=== PATIENT | male | born 1960 | race Caucasian/White ===

== ENCOUNTER 2016-05-14 14:24 | Emergency (ER) | payer BC ==
[~2016-05-14] VITALS: Ht 185.4 cm; Wt 118.0 kg
--- NOTE | 2016-05-14 14:30 | NUR ---
1405 - SPEAKS WITH NADEGE RN ON PHONE - EXPLAINS SITUATION AND THEY ARE EN ROUTE TO HOSPITAL. NADEGE DIRECTS THEM TO COME TO [facility]. 1420 -PATIENT ARRIVES IN AMBULANCE BAY, C-COLLAR APPLIED PRIOR TO GETTING OUT OF VEHICLE. PARTIAL TRAUMA ACTIVATED.
[2016-05-14] MEDS ORDERED: HYDROmorphone 1 MG/ML (DILAUDID) SYRINGE IV ONE (14:45)
[2016-05-14] MEDS ORDERED: ONDANSETRON 2 MG/ML (Z0FRAN) 2 ML VIAL IV ONE (14:45)
[2016-05-14] MEDS ORDERED: KETOROLAC 30 MG/ML (TORADOL) 1 ML VIAL IV ONE (14:45)
--- NOTE | 2016-05-14 14:57 | NUR ---
C-COLLAR REMOVED BY DR. TRAORE. PATIENT TOLERATED WELL.
[2016-05-14 15:23] LABS: ALBUMIN 4.2 g/dL (3.4-5.0); ALKALINE PHOSPHATASE 45 U/L (38-126); ANION GAP 16.9 MEQ/L (3-15); BUN/CREATININE RATIO 13 (10-20); TOTAL PROTEIN 7.5 g/dL (6.4-8.5)
[2016-05-14 16:14] LABS: BASOPHILS % (AUTO) 0 % (0-2); EOSINOPHILS # (AUTO) 0.2 10^3uL; EOSINOPHILS % (AUTO) 1 % (0-4); LYMPHOCYTES # (AUTO) 2.7 X10^3; MEAN CORPUSCULAR HGB CONC 34.3 g/dL (31.0-37.0); MEAN CORPUSCULAR VOLUME 91 FL (80-100); MEAN PLATELET VOLUME 8.9 FL (6.0-9.5); MONOCYTES # (AUTO) 1.6 X10^3; MONOCYTES % (AUTO) 11 % (3-11); NEUTROPHILS # (AUTO) 10.1 X10^3; NEUTROPHILS % (AUTO) 69 % (51-67); PLATELET COUNT 237 10^3uL (150-450); WHITE BLOOD COUNT 14.69 10^3uL (4.0-11.0)
[2016-05-14 16:17] LABS: MEAN CORPUSCULAR HEMOGLOBIN 31.4 PG (26.0-34.0)
[2016-05-14 16:28] LABS: CLARITY,URINE Clear; COLOR,URINE Yellow; GLUCOSE, URINE (UA) Negative (Negative); LEUKOCYTE ESTERASE ,URINE Negative (Negative); UROBILINOGEN,URINE 0.2 mg/dL (0.2-1.0)
[2016-05-14 16:41] LABS: BILIRUBIN,URINE 1+ (Negative)
[2016-05-14 16:42] LABS: RBC,URINE None Seen /HPF; URINE CENTRIFUGED VOLUME 12 mL
[2016-05-14 16:44] LABS: AMPHETAMINE SCREEN, URINE Negative (Negative); CANNABINOID SCREEN, URINE Negative (Negative); METHAMPHETAMINE SCREEN URINE S NEGATIVE (NEGATIVE); OPIATE SCREEN URINE Positive (Negative); PROPOXYPHENE STAT NEGATIVE (NEGATIVE)
[2016-05-14 17:07] VITALS: BP 137/89
== END 2016-05-14 17:08 | disposition home or self-care (01) ==
LOC: EDUNIT# 14:24 → ED 14:30
DX: S30.0XXA Contusion of lower back and pelvis, initial encounter (principal); S20.212A Contusion of left front wall of thorax, initial encounter; W17.89XA Other fall from one level to another, initial encounter; Y93.9 Activity, unspecified; Y92.65 Oil rig as the place of occurrence of the external cause; Y99.0 Civilian activity done for income or pay
CPT/HCPCS: 36415; 71020; 71100; 72100; 80053; 80307; 80320; 81003; 81015; 85025; 96374; 96375; 99283; J1170; J1885; J2405; 99284

== ENCOUNTER 2016-06-17 13:45 | Emergency (ER) | payer OTHER, BC ==
[~2016-06-17] VITALS: Ht 185.4 cm; Wt 118.0 kg
[2016-06-17] MEDS ORDERED: LIDOCAINE/EPINEPHRINE 1%-1:100,000 (XYLOCAINE) 20ML VIAL TOP ONE (14:00)
[2016-06-17] MEDS ORDERED: LIDOCAINE/EPINEPHRINE 1% 1:100,000 (XYLOCAINE) 30 ML VIAL INJ ONE ×2 (14:02→18:40)
[2016-06-17] MEDS ORDERED: BACITRACIN OINTMENT 0.9 GM PACKET TOP ONE (14:55)
[2016-06-17] MEDS ORDERED: TETANUS, DIPTHERIA, PERTUSSIS (ADACELL) VACCINE 0.5 ML VIAL IM ONE (15:00)
[2016-06-17] MEDS ORDERED: HYDROmorphone 1 MG/ML (DILAUDID) SYRINGE IM ONE (15:10)
[2016-06-17] MEDS ORDERED: PROMETHAZINE 25 MG/ML (PHENERGAN) 1 ML VIAL IM ONE (15:10)
--- NOTE | 2016-06-17 15:10 | NUR ---
PT REQUESTS PAIN MED DUE TO PAIN. DR CADENA INFORMS PT HE WILL HAVE TO WAIT 20 MIN HERE FOR A SHOT CHECK FURTHER. 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 NO FURTHER REQUESTS AT THIS TIME. ORDERS NOTED. CL
[2016-06-17 18:42] VITALS: BP 159/84
== END 2016-06-17 16:19 | disposition home or self-care (01) ==
LOC: ED 13:47
DX: S71.112A Laceration without foreign body, left thigh, initial encounter (principal); V28.0XXA Motorcycle driver injured in noncollision transport accident in nontraffic accident, initial encounter; Y93.89 Activity, other specified; Y92.008 Other place in unspecified non-institutional (private) residence as the place of occurrence of the external cause
CPT/HCPCS: 12005; 90471; 90715; 96372; 99283; J1170; J2550